=== PATIENT | male | born 1995 | race Caucasian/White ===

== ENCOUNTER 2018-04-11 14:55 | Emergency (ER) | payer BC, SELFPAY ==
[2018-04-11 15:05] VITALS: BP 143/91; PULSE 71; RESP 16; TEMP 36.6; O2SAT 99
[2018-04-11 15:28] VITALS: BP 143/91; PULSE 71; RESP 16; TEMP 36.6; O2SAT 99
--- NOTE | 2018-04-11 15:30 | ED.GENADUL_ITS ---
Discharge Plan Disposition Patient Disposition: HOME Condition: Good Discharge Details Chief Complaint: RashLesion Clinical Impression: Psoriasis, Dermatitis Primary Care Provider: Abelardo Branch ED Provider: Sreedhar Tenorio Home Meds and New Rx's Prescriptions: New clobetasol 0.05 % cream 1 applic TP BID PRN (Reason: rash) 7 Days Qty: 120 RF: 0 prednisone 50 mg tablet 50 mg PO DAILY Qty: 5 RF: 0 Discharge Instructions Instructions: Psoriasis (ED) Additional Instructions: Please take the steroid and cream as directed. You may notice some increased energy, and palpitations while taking the steroid, if you do experience these please stop taking the steroid immediately. Please avoid any soaps that have a low concentration of moisturizer. Please use a daily moisturizer. If you notice any worsening of your symptoms, or any new symptoms such as vomiting, diarrhea, fever, chills, shortness of breath, chest pain, numbness, weakness, or fainting , please return immediately to the emergency department for reevaluation. Please follow up with your primary care provider as soon as possible for reassessment and reevaluation. As always, it was a pleasure participating in your medical care today. Referrals: Abelardo Branch [Primary Care Provider] - Discharge Data Discharge Date/Time-TO BE ENTERED AT DEPARTURE: 04/11/18 15:30 Medical Decision Making This is a pleasant 23-year-old male who presents with signs and symptoms of psoriasis on exam. He denies any family history of autoimmune disease or psoriasis. Physical exam demonstrates rash over his legs and arms consistent with psoriasis. Patient will be given 5 days of systemic steroids and topical steroids. We discussed the importance of close follow-up with his PCP patient understands. We discussed red flags which to return he understands. I have extensively reviewed the treatment plan and discharge instructions with the patient. I have addressed all patient concerns at this time. The patient was made aware of what symptoms to monitor for that would warrant a return to the emergency department. Discussed the plan with the patient, they demonstrate verbal understanding and agreement with our assessment and plan at this time. HPI General Date/Time Provider Initiated Documentation: 04/11/18 15:20 . HPI Narrative: This is a 23-year-old male with no significant past medical history who presents for evaluation for rash. Patient states that he has had a mild rash since July. It started on his right posterior calf, and it gradually progressed over his body mainly include the extensor surfaces of his knees and elbows bilaterally. It is extremely itchy in nature. He has no associated bleeding. He did have some clobetasol prescribed a few months ago, and this did improve his symptoms but then they returned. He does use castor oil soap. He denies any other recent soap or detergent changes. He denies any itching in the intertriginous areas. He denies any other complaints at this time. He denies any previous surgical history. He denies any IV or illicit drug use. He does smoke. Related Data Home Medications Medication Instructions Recorded Confirmed clobetasol 1 applic TP BID PRN 7 Days #120 gm 04/11/18 prednisone 50 mg PO DAILY #5 tab 04/11/18 Previous Rx's Medication Instructions Recorded clobetasol 1 applic TP BID PRN 7 Days #120 gm 04/11/18 prednisone 50 mg PO DAILY #5 tab 04/11/18 Allergies Allergy/AdvReac Type Severity Reaction Status Date / Time Penicillins Allergy Intermediate Hives Unverified 04/11/18 15:10 General Stated Complaint: RashLesion BHARATH: 4 Review of Systems Review of Systems All systems reviewed & are unremarkable except as noted in HPI and below PFSH Social History Smoking/Tobacco Use Status: Current every day Exam Narrative Exam Narrative: 1.Const: Well-nourished, Well-developed, appearing stated age 2.Eyes: PERRL, no conjunctival injection, and symmetrical lids. 3.ENT: Atraumatic external nose and ears. Moist MM. Neck: Symmetric, trachea midline, No thyromegaly. 4.CVS: +S1/S2, No murmurs or gallops. Peripheral pulses 2+ and equal in all extremities. Brisk capillary refill in all extremities. 5.RESP: Unlabored respiratory effort. Clear to auscultation bilaterally. No wheezes rales or rhonchi 6.GI: Soft, Nontender/Nondistended, No hepatosplenomegaly. No guarding or rebound. 7.MSK: Normocephalic/Atraumatic, Extremities w/o deformity or ttp No cyanosis or clubbing, Normal movement of all extremities 8.Skin: Warm, Dry. Circular scaly lesions on the right medial calf, left anterior christian, extensor surfaces of the elbow both proximally and distally. Mild peeling. No bleeding. 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 Sensation grossly intact, no focal neurologic deficits. 10.Psych: (AAO) x3. Appropriate mood and affect Course Vital Signs Temperature 36.6 C 04/11/18 15:05 Pulse 71 04/11/18 15:05 Respiratory Rate 16 04/11/18 15:05 Blood Pressure 143/91 H 04/11/18 15:05 Pulse Oximetry 99 04/11/18 15:05 Temperature 36.6 C 04/11/18 15:05 Temperature Source Skin 04/11/18 15:05 Pulse 71 04/11/18 15:05 Respiratory Rate 16 04/11/18 15:05 Respiratory Effort Non-Labored 04/11/18 15:05 Blood Pressure 143/91 H 04/11/18 15:05 Blood Pressure Position Sitting 04/11/18 15:05 Pulse Oximetry 99 04/11/18 15:05 Oxygen Delivery Method Room Air 04/11/18 15:05 Oxygen Flow Rate 0 04/11/18 15:05 Pain Level 0 04/11/18 15:05
== END 2018-04-11 15:30 | disposition home or self-care (01) ==
PROVIDERS: Emergency Provider Student in an Organized Health Care Education/Training Program; PCP Family Medicine Adult Medicine
DX: L40.9 Psoriasis, unspecified (principal); L30.9 Dermatitis, unspecified
CPT/HCPCS: 99283